=== PATIENT | male | born 1985 | race Hispanic/Latino ===

== ENCOUNTER 2019-05-03 15:55 | Emergency (ER) | payer SELFPAY ==
[2019-05-03] MEDS ORDERED: Lidocaine 1% PF 5 ML VIAL ONE (16:31)
[2019-05-03] MEDS ORDERED: Bacitracin 1 PK ONE (16:55)
[2019-05-03] MEDS ORDERED: Adacel (T-DAP) 0.5 ML SYRINGE ONE (17:10)
[2019-05-03] MEDS ORDERED: Ibuprofen 200 MG TAB ONE (17:10)
== END 2019-05-03 17:40 | disposition home or self-care (01) ==
LOC: ERS 15:55
DX: S51.011A Laceration without foreign body of right elbow, initial encounter (principal); W11.XXXA Fall on and from ladder, initial encounter
CPT/HCPCS: 12001; 90471; 90715; J2001

== ENCOUNTER 2021-02-06 12:59 | Emergency (ER) | payer SELFPAY ==
[2021-02-06] MEDS ORDERED: Cyclobenzaprine 10 MG TAB ONE (14:09)
[2021-02-06] MEDS ORDERED: HYDROcodone/Acetaminophen 5/325 mg Tablet ONE (14:09)
== END 2021-02-06 14:29 | disposition home or self-care (01) ==
LOC: ERS 12:59
DX: M62.830 Muscle spasm of back (principal); X50.9XXA Other and unspecified overexertion or strenuous movements or postures, initial encounter; Y92.009 Unspecified place in unspecified non-institutional (private) residence as the place of occurrence of the external cause
CPT/HCPCS: 99283

== ENCOUNTER 2021-04-08 18:33 | Emergency (ER) | payer SELFPAY ==
[2021-04-08] MEDS ORDERED: Lidocaine 1% w/Epinephrine 1:100K 20 ML VIAL ONE (18:43)
== END 2021-04-08 19:08 | disposition home or self-care (01) ==
LOC: ERS 18:33
DX: L02.413 Cutaneous abscess of right upper limb (principal)
CPT/HCPCS: 10060; 87070; 87077; 87186; 87205

== ENCOUNTER 2025-08-02 13:14 | Emergency (ER) | payer SELFPAY ==
[2025-08-02] MEDS ORDERED: Lidocaine 1% PF 5 ML VIAL ONE (14:09)
[2025-08-02] MEDS ORDERED: Cephalexin 250 MG CAP ONE (14:42)
[2025-08-02] MEDS ORDERED: Bacitracin 1 PK ONE (14:42)
== END 2025-08-02 14:55 | disposition home or self-care (01) ==
LOC: ERS 13:14
DX: S61.011A Laceration without foreign body of right thumb without damage to nail, initial encounter (principal); W22.8XXA Striking against or struck by other objects, initial encounter
CPT/HCPCS: 12001; 90471; 90715